=== PATIENT | female | born 1975 | race Caucasian/White ===

== ENCOUNTER 2017-09-10 17:11 | Emergency (ER) | payer OTHER, BC ==
[2017-09-10 17:21] VITALS: BMI 27.9
[2017-09-10] MEDS ORDERED: SODIUM CHLORIDE 1,000 ML IV STA (17:36)
[2017-09-10] MEDS ORDERED: ACETAMINOPHEN 1000 MG/100 ML VIAL (NON FORMULARY) IVPB ONE (17:36)
[2017-09-10] MEDS ORDERED: ACETAMINOPHEN INJECTION 100 ML IVPB ONE (17:49)
--- NOTE | 2017-09-10 17:50 | PDOC ---
History of Present Illness - General Chief Complaint: Pain Stated Complaint: ABD PAIN Time Seen by Provider: 09/10/17 17:35 History Source: Patient - History of Present Illness Timing/Duration: reports: constant Quality: reports: severe Abdominal Pain Onset Location: reports: LLQ Pain Radiation: reports: no radiation Past History - Past Medical History Allergies/Adverse Reactions: Allergies Allergy/AdvReac Type Severity Reaction Status Date / Time No Known Allergies Allergy Verified 09/10/17 17:20 Home Medications: Ambulatory Orders Ciprofloxacin HCl [Cipro] 500 mg PO BID #20 tablet 09/10/17 metroNIDAZOLE [Flagyl -] 500 mg PO TID #30 tablet 09/10/17 COPD: No - Surgical History Abdominal Surgery: Yes (ABD HERNIA.) - Reproductive History Spontaneous : 1 - Suicide/Smoking/Psychosocial Hx Smoking Status: No Smoking History: Never smoked Number of Cigarettes Smoked Daily: 0 Cigars Per Day: 0 Hx Alcohol Use: No Drug/Substance Use Hx: No Substance Use Type: None Review of Systems - Review of Systems Constitutional: Yes: Fever ABD/GI: Yes: Abdominal cramping. No: Constipated, Diarrhea, Nausea, Vomiting : No: Burning, Dysuria, Flank Pain, Hematuria *Physical Exam - Vital Signs Last Vital Signs Temp Pulse Resp BP Pulse Ox 99.9 F H 108 H 20 133/88 99 09/10/17 17:18 09/10/17 17:18 09/10/17 17:18 09/10/17 17:18 09/10/17 17:18 - Physical Exam General Appearance: Yes: Appropriately Dressed. No: Apparent Distress HEENT: positive: Normal Voice Neck: positive: Supple Respiratory/Chest: negative: Respiratory Distress Gastrointestinal/Abdominal: positive: Normal Bowel Sounds, Tender (to LLQ), Soft. negative: Pulsatile Mass, Distended, Guarding, Rebound Musculoskeletal: negative: CVA Tenderness Integumentary: positive: Dry, Warm Neurologic: positive: Fully Oriented, Alert, Normal Mood/Affect ED Treatment Course - LABORATORY CBC & Chemistry Diagram: 09/10/17 18:00 09/10/17 18:00 - RADIOLOGY Radiology Studies Ordered: Category Date Time Status ABDOMEN & PELVIS CT WITH CONTR [CT] Stat CT Scan 09/10/17 17:40 Ordered Medical Decision Making - Medical Decision Making 09/10/17 17:41 41-year-old female, history of migraines, here with severe LLQ pain that started this a.m. and is constant. No nausea, vomiting, change in bowel movements, melena, bright blood per rectum, dysuria, vaginal discharge, f/c. Seen at [facility] today and told she had a fever of 103 but wa not given any meds. Referred to ER for labd and CT scan. Patient denies history of similar symptoms in the past and no known history of diverticulitis, colitis or renal colic See exam R/o diverticulitis, less likely renal colic, uti or TERRITORY BUSINESS MANAGER source -pain control -IVF -labs -CT scan 09/10/17 18:59 Pt signed out to ERNESTO Rodriguez *DC/Admit/Observation/Transfer Diagnosis at time of Disposition: Diverticulitis - Discharge Dispostion Disposition: HOME Condition at time of disposition: Stable - Prescriptions Prescriptions: Ciprofloxacin HCl [Cipro] 500 mg PO BID #20 tablet metroNIDAZOLE [Flagyl -] 500 mg PO TID #30 tablet - Referrals Referrals: Lexa Avila MD [Staff Physician] - - Patient Instructions Printed Discharge Instructions: DI for Diverticulitis Additional Instructions: Your Discharge Instructions: You must call primary care physician within 24 hours to arrange follow-up. Return to the Emergency Department with any new, persistent or worsening symptoms, for fever, chills, SOB, dizziness, nausea and vomiting, or any other concerning changes that may occur. He must make an appointment to see the internal wholesaler for further evaluation and testing. - Post Discharge Activity
[2017-09-10 18:04] LABS: BASO % 0.4 % (0-2.0); EOS % 0.8 % (0-4.5); HEMATOCRIT 38.2 % (32.4-45.2); LYMPH % 21.4 % (8-40); MCH 26.6 pg (25.7-33.7); MCHC 34.1 g/dl (32.0-36.0); MEAN PLT VOLUME 8.6 fl (7.5-11.1); MONO % 5.7 % (3.8-10.2); NEUT % 71.7 % (42.8-82.8); PLATELET COUNT 223 K/MM3 (134-434); RBC 4.89 M/mm3 (3.60-5.2); RDW 14.9 % (11.6-15.6)
[2017-09-10 18:10] LABS: URINE APPEARANCE CLEAR; URINE BILIRUBIN NEGATIVE (<2.0 mg/dL); URINE COLOR LTYELLOW; URINE GLUCOSE (UA) NEGATIVE (NEGATIVE); URINE KETONE NEGATIVE (NEGATIVE); URINE LEUK ESTERASE NEGATIVE (NEGATIVE); URINE NITRITE NEGATIVE (NEGATIVE); URINE PROTEIN NEGATIVE (NEGATIVE); URINE UROBILINOGEN NEGATIVE mg/dL (0.2-1.0)
[2017-09-10 18:26] LABS: ALBUMIN 3.9 g/dl (3.4-5.0); ANION GAP 9 (8-16); BILIRUBIN,TOTAL 0.9 mg/dL (0.2-1.0); BLOOD UREA NITROGEN 8 mg/dL (7-18); CALCIUM 8.7 mg/dL (8.5-10.1); CHLORIDE 103 mmol/L (98-107); CO2 27 mmol/L (21-32); CREATININE 0.7 mg/dL (0.55-1.02); GLUCOSE,RANDOM 91 mg/dL (74-106); LIPASE 65 U/L (73-393); POTASSIUM 3.8 mmol/L (3.5-5.1); SGOT/AST 14 U/L (15-37); SGPT/ALT 37 U/L (12-78); SODIUM 139 mmol/L (136-145); TOT PROT 7.7 g/dl (6.4-8.2)
[2017-09-10 18:27] LABS: ALK PHOS 57 U/L (45-117)
--- NOTE | 2017-09-10 20:06 | PDOC ---
*Physical Exam - Vital Signs Last Vital Signs Temp Pulse Resp BP Pulse Ox 99.9 F H 108 H 20 133/88 99 09/10/17 17:18 09/10/17 17:18 09/10/17 17:18 09/10/17 17:18 09/10/17 17:18 ED Treatment Course - LABORATORY CBC & Chemistry Diagram: 09/10/17 18:00 09/10/17 18:00 - ADDITIONAL ORDERS Additional order review: Laboratory Results 09/10/17 09/10/17 09/10/17 18:00 18:00 18:00 Sodium 139 Potassium 3.8 Chloride 103 Carbon Dioxide 27 Anion Gap 9 BUN 8 Creatinine 0.7 Creat Clearance w eGFR > 60 Random Glucose 91 Calcium 8.7 Total Bilirubin 0.9 AST 14 L ALT 37 Alkaline Phosphatase 57 Total Protein 7.7 Albumin 3.9 Lipase 65 L Serum , Qual Negative Urine Color Ltyellow Urine Appearance Clear Urine pH 6.0 D Ur Specific [place] 1.011 Urine Protein Negative Urine Glucose (UA) Negative Urine Ketones Negative Urine Blood Negative Urine Nitrite Negative Urine Bilirubin Negative Urine Urobilinogen Negative Ur Leukocyte Esterase Negative 09/10/17 18:00 RBC 4.89 MCV 78.0 L MCHC 34.1 RDW 14.9 MPV 8.6 Neutrophils % 71.7 Lymphocytes % 21.4 D Monocytes % 5.7 Eosinophils % 0.8 Basophils % 0.4 - Medications Given in the ED: ED Medications Discontinued Medications Generic Name Dose Route Start Last Admin Trade Name aJke PRN Reason Stop Dose Admin Acetaminophen 1,000 mg 09/10/17 17:36 09/10/17 18:00 Ofirmev Injection - IVPB 09/10/17 17:37 1,000 mg ONCE ONE Administration Sodium Chloride 1,000 mls @ 1,000 mls/hr 09/10/17 17:36 09/10/17 18:00 Normal Saline - IV 09/10/17 18:35 1,000 mls/hr ASDIR STA Administration Medical Decision Making - Medical Decision Making 1900 Endorsed to me to follow ct scan and disposition. Patient seen and evaluated. Currently has no complaints states her pain is tolerable. She has no nausea or vomiting and is tolerating by mouth. CT scan discussed with patient as below. Willing to try outpatient therapy and follow-up with GI 09/10/17 20:04 Patient Full Name: MARSHALL THORNE Patient Accession No: [id number] Patient : [id number] Reason for Exam: LLQ PAIN Referring Physician: JAZZ MAX Patient Name: MATI OLIVARES THIS IS A PRELIMINARY REPORT FROM [facility] DATE OF SERVICE: 2017-09-10 19:31:21 IMAGES: 512 EXAM: CT ABDOMEN AND PELVIS WITH IV CONTRAST HISTORY: Left lower quadrant pain COMPARISON: None available FINDINGS: Lower Chest: Within normal limits. Abdomen: Liver:: Hepatomegaly with steatosis. Bile Ducts: Within normal limits. Gallbladder:: Within normal limits. Pancreas:: Within normal limits. Spleen:: Splenomegaly Adrenals: Within normal limits. Kidneys: No evidence of hydronephrosis or nephrolithiasis. Stomach:: Small sliding hiatal hernia. Bowel:: No evidence of small bowel obstruction or mass. Normal appendix is identified. Distal descending/sigmoid diverticulitis without evidence of pericolonic fluid collection or abscess. Pelvis: Reproductive Organs: Presumably nabothian cysts in the cervix. Incidental note is made of 1.9 cm dominant follicle in the left ovary. Bladde: Within normal limits. Vessels: Aorta: Within the normal limits without aneurysm or dissection. Retroperitoneum: Within normal limits. Bones: : No suspicious osseous lesions. Lumbar spondylosis at L5-S1 IMPRESSION: 1. Distal descending/sigmoid diverticulitis without evidence of pericolonic fluid collection or abscess. Individualized dose optimization techniques were used for this CT. THIS DOCUMENT HAS BEEN ELECTRONICALLY SIGNED Leon Obrien MD 09/10/2017 19:58 EST M.D. Please call Imaging Handle Lathe Operator [phone] ([phone]) with questions. INTERPRETING RADIOLOGIST: Leon Obrien MD Electronically Signed: Sep 10, 2017 07:58PM ED I discussed the physical exam findings, ancillary test results and final diagnoses with the patient. I answered all of the patient's questions. The patient was satisfied with the care received and felt comfortable with the discharge plan and treatment plan. The Patient agrees to follow up with the primary care physician within 24-72 hours. 09/10/17 21:13 Selected Entries 09/10/17 21:10 Temperature 98.8 F Pulse Rate [ 86 Left Radial] Respiratory 20 Rate Blood Pressure 130/86 [Left Arm] O2 Sat by Pulse 98 Oximetry (%) *DC/Admit/Observation/Transfer Diagnosis at time of Disposition: Diverticulitis - Discharge Dispostion Disposition: HOME Condition at time of disposition: Stable - Prescriptions Prescriptions: Ciprofloxacin HCl [Cipro] 500 mg PO BID #20 tablet metroNIDAZOLE [Flagyl -] 500 mg PO TID #30 tablet - Referrals Referrals: Lexa Avila MD [Staff Physician] - - Patient Instructions Printed Discharge Instructions: DI for Diverticulitis Additional Instructions: Your Discharge Instructions: You must call primary care physician within 24 hours to arrange follow-up. Return to the Emergency Department with any new, persistent or worsening symptoms, for fever, chills, SOB, dizziness, nausea and vomiting, or any other concerning changes that may occur. He must make an appointment to see the product manufacturing professional for further evaluation and testing. - Post Discharge Activity
[2017-09-10] MEDS ORDERED: metroNIDAZOLE 500 MG TABLET PO ONE (20:57)
[2017-09-10] MEDS ORDERED: metroNIDAZOLE 250 MG TABLET ONE (20:59)
[2017-09-10] MEDS: CIPROFLOXACIN 500 MG TABLET (RESTRICTED TO ID) PO ONE ×2 (21:03→21:05)
[2017-09-10 21:11] VITALS: BP 130/86; PULSE 86; TEMP 98.8
== END 2017-09-10 21:16 | disposition home or self-care (01) ==
LOC: JER 17:11
PROC: 3E033NZ Introduction of Analgesics, Hypnotics, Sedatives into Peripheral Vein, Percutaneous Approach (ICD-10-PCS; principal; 2017-09-10)
DX: K57.92 Diverticulitis of intestine, part unspecified, without perforation or abscess without bleeding (principal)
CPT/HCPCS: 36415; 74177-TC; 80053; 81003; 83690; 84703; 85025; 99283-25; J0131; J7030